=== PATIENT | male | born 1945 | race Caucasian/White ===

== ENCOUNTER 2020-10-06 09:57 | Inpatient (IN) ==
[2020-10-06] MEDS ORDERED: MOM Conc 10 ML UD.LIQ PO PRN (18:11)
[2020-10-06] MEDS ORDERED: Acetaminophen 325 MG TABLET PO PRN (18:11)
[2020-10-06] MEDS ORDERED: Sennosides 8.6 MG TABLET PO PRN (18:11)
[2020-10-08] MEDS: OLANZapine 10 MG TAB.RAPDIS PO SCH ×3 (03:31→21:08)
[2020-10-08] MEDS: Aspirin Enteric Coated 81 MG Tablet PO SCH ×2 (03:35→10:04)
[2020-10-08] MEDS: *HR* Metformin 500 MG TABLET PO SCH ×2 (03:36→17:09)
[2020-10-08] MEDS: polyethylene glycoL 3350 17 GM POWD.PACK PO SCH ×2 (03:36→10:16)
[2020-10-08] MEDS: OLANZapine 5 MG TAB.RAPDIS PO SCH ×2 (03:36→10:05)
[2020-10-08] MEDS: Cholecalciferol (D-3) 1,000 UNIT (25MCG) TABLET PO SCH ×2 (03:36→10:04)
[2020-10-08] MEDS: Magnesium Oxide 400 MG TABLET PO SCH ×2 (10:04→21:08)
[2020-10-08] MEDS ORDERED: Dextrose Gel 15 GM/37.5 ML TUBE PO PRN ×2 (14:35)
[2020-10-08] MEDS ORDERED: D5% in Water 1,000 ML IVC PRN (14:35)
[2020-10-08] MEDS ORDERED: *HR* Dextrose 50 % in Water (Vial) 50 ML VIAL IVP PRN (14:35)
[2020-10-08] MEDS: Insulin LISPRO 300 UNITS/3 ML VIAL SUBQ SCH (16:54)
[2020-10-08] MEDS ORDERED: Insulin LISPRO 300 UNITS/3 ML VIAL SUBQ SCH (21:00)
[2020-10-09 07:28] LABS: Hematocrit 32.6 % (37.5-50.1); Hemoglobin 10.4 g/dL (12.9-16.9); Mean Corpuscular HGB Conc 31.9 g/dL (31.6-35.5); Mean Corpuscular Hemoglobin 28.1 pg (28.0-33.3); Mean Corpuscular Volume 88.1 fL (83.0-100.0); Mean Platelet Volume 10.6 fL (9.4-12.4); Platelet Count 210 K/mcL (140-400); Red Cell Distribution Width 13.7 % (11.5-14.5); White Blood Count 3.4 K/mcL (4.3-11.1)
[2020-10-09 07:52] LABS: BUN/Creatinine Ratio 20 (6-26); Blood Urea Nitrogen 19 mg/dL (8-23); Calcium 9.2 mg/dL (8.6-10.3); Carbon Dioxide 28 mEq/L (23-29); Chloride 107 mEq/L (98-107); Glucose 84 mg/dL (70-105); Osmolality,Calculated 295 (280-300); Sodium 142 mEq/L (136-145); eGFR For African Americans > 60 (> 60); eGFR For Non-African Americans > 60 (> 60)
[2020-10-09] MEDS: Insulin LISPRO 300 UNITS/3 ML VIAL SUBQ SCH (09:03)
[2020-10-09] MEDS: Magnesium Oxide 400 MG TABLET PO SCH ×2 (09:53→20:46)
[2020-10-09] MEDS: Cholecalciferol (D-3) 1,000 UNIT (25MCG) TABLET PO SCH (09:53)
[2020-10-09] MEDS: Aspirin Enteric Coated 81 MG Tablet PO SCH (09:53)
[2020-10-09] MEDS: polyethylene glycoL 3350 17 GM POWD.PACK PO SCH (09:53)
[2020-10-09] MEDS: OLANZapine 5 MG TAB.RAPDIS PO SCH (09:53)
[2020-10-09] MEDS: *HR* Metformin 500 MG TABLET PO SCH (17:34)
[2020-10-09] MEDS: OLANZapine 10 MG TAB.RAPDIS PO SCH (20:46)
[2020-10-10] MEDS: Cholecalciferol (D-3) 1,000 UNIT (25MCG) TABLET PO SCH (09:16)
[2020-10-10] MEDS: Aspirin Enteric Coated 81 MG Tablet PO SCH (09:16)
[2020-10-10] MEDS: OLANZapine 5 MG TAB.RAPDIS PO SCH (09:16)
[2020-10-10] MEDS: Magnesium Oxide 400 MG TABLET PO SCH ×2 (09:16→19:35)
[2020-10-10] MEDS: polyethylene glycoL 3350 17 GM POWD.PACK PO SCH (09:17)
[2020-10-10] MEDS: *HR* Metformin 500 MG TABLET PO SCH (17:20)
[2020-10-10] MEDS: OLANZapine 10 MG TAB.RAPDIS PO SCH (19:34)
[2020-10-11] MEDS: polyethylene glycoL 3350 17 GM POWD.PACK PO SCH (09:51)
[2020-10-11] MEDS: Aspirin Enteric Coated 81 MG Tablet PO SCH (09:52)
[2020-10-11] MEDS: OLANZapine 5 MG TAB.RAPDIS PO SCH (09:53)
[2020-10-11] MEDS: Magnesium Oxide 400 MG TABLET PO SCH ×2 (09:53→19:34)
[2020-10-11] MEDS: Cholecalciferol (D-3) 1,000 UNIT (25MCG) TABLET PO SCH (09:53)
[2020-10-11] MEDS: *HR* Metformin 500 MG TABLET PO SCH (17:48)
[2020-10-11] MEDS: OLANZapine 10 MG TAB.RAPDIS PO SCH (19:34)
[2020-10-12] MEDS: OLANZapine 5 MG TAB.RAPDIS PO SCH (09:29)
[2020-10-12] MEDS: Magnesium Oxide 400 MG TABLET PO SCH ×2 (09:29→19:59)
[2020-10-12] MEDS: polyethylene glycoL 3350 17 GM POWD.PACK PO SCH (09:29)
[2020-10-12] MEDS: Aspirin Enteric Coated 81 MG Tablet PO SCH (09:29)
[2020-10-12] MEDS: Cholecalciferol (D-3) 1,000 UNIT (25MCG) TABLET PO SCH (09:30)
[2020-10-12] MEDS: *HR* Metformin 500 MG TABLET PO SCH (17:45)
[2020-10-12] MEDS: OLANZapine 10 MG TAB.RAPDIS PO SCH (19:58)
[2020-10-13] MEDS: Cholecalciferol (D-3) 1,000 UNIT (25MCG) TABLET PO SCH (07:58)
[2020-10-13] MEDS: Magnesium Oxide 400 MG TABLET PO SCH ×2 (07:58→21:13)
[2020-10-13] MEDS: OLANZapine 5 MG TAB.RAPDIS PO SCH (07:58)
[2020-10-13] MEDS: Aspirin Enteric Coated 81 MG Tablet PO SCH (07:59)
[2020-10-13] MEDS: polyethylene glycoL 3350 17 GM POWD.PACK PO SCH (07:59)
[2020-10-13] MEDS: *HR* Metformin 500 MG TABLET PO SCH (16:48)
[2020-10-13] MEDS: OLANZapine 10 MG TAB.RAPDIS PO SCH (21:12)
[2020-10-14 08:30] VITALS: RESP 14; TEMP 98; O2SAT 99
[2020-10-14] MEDS: Aspirin Enteric Coated 81 MG Tablet PO SCH (09:15)
[2020-10-14] MEDS: OLANZapine 5 MG TAB.RAPDIS PO SCH (09:15)
[2020-10-14] MEDS: Cholecalciferol (D-3) 1,000 UNIT (25MCG) TABLET PO SCH (09:15)
[2020-10-14] MEDS: polyethylene glycoL 3350 17 GM POWD.PACK PO SCH (09:16)
[2020-10-14] MEDS: Magnesium Oxide 400 MG TABLET PO SCH (09:16)
[2020-10-14 10:49] VITALS: BP 139/85; PULSE 63
== END 2020-10-14 15:05 | disposition home health service (06) | DRG 945 ==
LOC: INPPIK 10-08 01:30
PROVIDERS: ADMIT Family Medicine; ATTEND Family Medicine